=== PATIENT | male | born 1955 | race Caucasian/White ===

== ENCOUNTER → 2017-02-21 | Outpatient (CLI) | payer MEDICARE, OTHER | END | disposition short-term general hospital (02) | LOC: CLRHEU 08:57 | DX: M25.50 Pain in unspecified joint (principal); M79.1 Myalgia ==

== ENCOUNTER → 2017-05-08 | Outpatient (CLI) | payer MEDICARE, OTHER | END | disposition short-term general hospital (02) | LOC: CLRHEU 09:45 | DX: M13.80 Other specified arthritis, unspecified site (principal) ==